=== PATIENT | male | born 1950 | race African-American/Black ===

== ENCOUNTER 2025-08-30 12:31 | Emergency (ER) | payer MEDICARE, OTHER ==
[~2025-08-30] VITALS: Ht 167.6 cm; Wt 80.0 kg
[~2025-08-30 12:31] MED LIST: CALC-898 PO; DABI150C MT; DORZ10DR32 EACHEYE; LATA2.5D7 EACHEYE; LEVO750T68 MT
[2025-08-30 12:41] VITALS: O2SAT 100
[2025-08-30 13:13] LABS: BASOPHILS % 0.9 % (0.0-2.0); EOSINOPHILS % 6.9 % (0.0-5.0); HEMATOCRIT. 37.1 % (42.0-52.0); HEMOGLOBIN. 12.3 g/dL (14.0-18.0); LYMPHOCYTES % 43.4 % (20.0-50.0); MEAN PLATELET VOLUME 8.0 fl (7.4-10.4); MONOCYTES % 5.6 % (2.0-8.0); NEUTROPHILS % 43.2 % (40.0-76.0); PLATELET 236 x1000/uL (130-400); RED BLOOD CELL COUNT 3.75 mill/uL (4.7-6.1); RED CELL DISTRIBUTION WIDTH 14.3 % (11.6-14.6)
[2025-08-30 13:27] LABS: CREATININE 0.8 mg/dL (0.6-1.3); UREA NITROGEN BLOOD 7 mg/dL (9-23)
[2025-08-30 13:29] LABS: TROPONIN I HIGH SENSITIVITY < 4 ng/L (3.0-53)
[2025-08-30 14:23] VITALS: BP 140/82; PULSE 72; RESP 16; TEMP 36.7; O2SAT 100
== END 2025-08-30 14:24 | disposition home or self-care (01) ==
LOC: ER 12:31
DX: R00.2 Palpitations (principal); R06.02 Shortness of breath; Z79.01 Long term (current) use of anticoagulants; Z88.8 Allergy status to other drugs, medicaments and biological substances
CPT/HCPCS: 36415; 71045; 80048; 84484; 85025; 93005; 99285